=== PATIENT | male | born 1945 | race Caucasian/White ===

== ENCOUNTER 2017-12-27 14:23 | Inpatient (IN) | payer BC, MEDICARE ==
[2017-12-27] MEDS ORDERED: DUONEB 0.5-3 MG/3 ml Neb IH ONE (15:48)
[2017-12-27] MEDS ORDERED: Sodium Chloride 0.9% 10 ML FLUSH Syringe IV PRN (15:59)
[2017-12-27] MEDS ORDERED: solu-MEDROL 125 MG IV SCH (16:00)
[2017-12-27] MEDS: ROCEPHIN 1 Gm-D5w 50 ml Bag** 1 G/50 ML IVPB IV SCH (16:13)
[2017-12-27] MEDS ORDERED: Lasix 20 MG/2 ML IV ONE (16:15)
[2017-12-27 16:17] LABS: A-aADO2 312; ABG HEMOGLOBIN 15.9; ABG POTASSIUM 3.7 (3.5-5.1); ABG SITE LEFT BRACHIAL; ARTERIAL BLD GAS O2 SATURATION 95.6 % (95-100); ARTERIAL BLOOD GAS FIO2 60 %; ARTERIAL BLOOD GAS PCO2 45 mmHg (35-45); ARTERIAL BLOOD GAS PO2 60 mmHg (75-100); ARTERIAL BLOOD GAS pH 7.46 (7.35-7.45); HGB O2 SAT 91.6 g/dF (94-100); Methhemoglobin 1.2 % (1.4-1.5); paO2 pAO1 0.16
[2017-12-27] MEDS ORDERED: DUONEB 0.5-3 MG/3 ml Neb IH PRN (16:20)
[2017-12-27 16:21] LABS: Hematocrit 49.4 % (42-50); Hemoglobin 16.3 gm/dl (12.5-18.0); Mean Cell Volume 91.8 fl (78-100); Mean Corpuscular Hemoglobin 30.3 pg (26-32); Mean Platelet Volume 11.2 fl (6-9.5); Platelet Count 244 K/mm3 (150-450); Red Blood Count 5.38 M/mm3 (4.1-5.6); Red Cell Distribution Width 14.4 % (11.5-14.0); White Blood Count 17.7 K/mm3 (4.0-10.5)
[2017-12-27 16:45] LABS: ALBUMIN 4.3 g/dL (3.5-5.0); ALKALINE PHOSPHATASE 70 U/L (38-126); ANION GAP 14.7 MEQ/L (5-15); BLOOD UREA NITROGEN 26 mg/dL (9-20); CHLORIDE 94 mmol/L (98-107); Calcium 10.8 mg/dL (8.4-10.2); Carbon Dioxide 34 mmol/L (22-30); Creatinine 1 0.65 mg/dL (0.66-1.25); Glucose 103 mg/dL (74-106); Potassium 3.6 mmol/L (3.5-5.1); SGOT/AST 21 U/L (17-59); SGPT/ALT 19 U/L (0-50); SODIUM 139 mmol/L (137-145); Total Protein 7.8 g/dL (6.3-8.2)
--- NOTE | 2017-12-27 16:53 | XRAY ---
Indication: COPD exacerbation. Comparison: September 08, 2009. 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 No focal infiltrate, consolidation, or large effusion. Heart and mediastinal structures within normal limits for AP portable technique. Bony thorax intact again with osteopenia and degenerative changes. Impression: Nonacute chest with chronic features.
[2017-12-27 16:54] LABS: INFLUENZA A NEGATIVE (NEGATIVE); INFLUENZA B NEGATIVE (NEGATIVE); RESPIRATORY SYNCTIAL VIRUS NEGATIVE (Negative)
[2017-12-27 16:56] LABS: NT PRO BNP 256 pg/mL (0-900); TROPONIN 0.015 ng/mL (0.000-0.034)
[2017-12-27] MEDS ORDERED: Cardizem IV 50 MG/10 ML IV ONE (17:26)
[2017-12-27] MEDS: THEOPHYLLINE ER 24HR PO SCH (17:47)
[2017-12-27] MEDS ORDERED: DUONEB 0.5-3 MG/3 ml Neb IH SCH (19:00)
[2017-12-27] MEDS: Advair Hfa 230/21 Mcg COMMON CANISTER IH SCH ×2 (19:41→20:41)
[2017-12-27] MEDS ORDERED: Xopenex 1.25 MG/0.5 ML UD NEBULE IH PRN (20:46)
[2017-12-27] MEDS ORDERED: Sodium Chloride 3 ML UD NEBULES IH PRN (20:47)
[2017-12-27] MEDS: Sodium Chloride 0.9% 10 ML FLUSH Syringe IV SCH (21:07)
[2017-12-27] MEDS: solu-MEDROL 125 MG IV SCH (23:33)
[2017-12-28 05:44] LABS: Hematocrit 43.5 % (42-50); Hemoglobin 14.3 gm/dl (12.5-18.0); Mean Cell Volume 92.4 fl (78-100); Mean Corpuscular Hemoglobin 30.4 pg (26-32); Mean Corpuscular Hgb Concent. 32.9 g/dl (32-36); Mean Platelet Volume 11.5 fl (6-9.5); Platelet Count 230 K/mm3 (150-450); Red Blood Count 4.71 M/mm3 (4.1-5.6); Red Cell Distribution Width 14.1 % (11.5-14.0); White Blood Count 14.4 K/mm3 (4.0-10.5)
[2017-12-28] MEDS ORDERED: Spiriva 18 Mcg/Cap Inhaler IH ONE (06:11)
[2017-12-28] MEDS: Xopenex 1.25 MG/0.5 ML UD NEBULE IH SCH ×4 (06:13→19:56)
[2017-12-28] MEDS: Spiriva 18 Mcg/Cap Inhaler IH SCH (06:13)
[2017-12-28] MEDS: Sodium Chloride 3 ML UD NEBULES IH SCH ×4 (06:13→23:31)
[2017-12-28] MEDS: Advair Hfa 230/21 Mcg COMMON CANISTER IH SCH ×2 (06:13→19:56)
[2017-12-28 06:23] LABS: ANION GAP 10.6 MEQ/L (5-15); BLOOD UREA NITROGEN 31 mg/dL (9-20); CHLORIDE 93 mmol/L (98-107); Carbon Dioxide 38 mmol/L (22-30); Creatinine 1 0.66 mg/dL (0.66-1.25); Glucose 167 mg/dL (74-106); Potassium 4.4 mmol/L (3.5-5.1); SODIUM 137 mmol/L (137-145)
[2017-12-28] MEDS: solu-MEDROL 125 MG IV SCH ×4 (06:33→23:36)
[2017-12-28] MEDS: Sodium Chloride 0.9% 10 ML FLUSH Syringe IV SCH ×3 (06:34→23:36)
[2017-12-28] MEDS ORDERED: Atrovent 0.5MG NEBULE IH SCH (07:00)
[2017-12-28] MEDS ORDERED: NON-FORMULARY ITEM (Multivitamin [Multivitamins] 1 EACH) PO SCH (10:00)
[2017-12-28] MEDS ORDERED: NON-FORMULARY ITEM (Calcium Carbonate/Vitamin D3 [Calcium 600-Vit D3 200 Tablet] 1 EACH) PO SCH (10:00)
[2017-12-28] MEDS: Calcium 500MG W/Vit D Tablet PO SCH (10:14)
[2017-12-28] MEDS: Protonix 40MG Tablet PO SCH (10:15)
[2017-12-28] MEDS: THERAGRAN MULTIVITAMIN PO SCH (10:15)
[2017-12-28] MEDS: ENOXAPARIN SODIUM SQ SCH (10:16)
[2017-12-28] MEDS: ROCEPHIN 1 Gm-D5w 50 ml Bag** 1 G/50 ML IVPB IV SCH (10:16)
[2017-12-28] MEDS: CLARITIN 10 MG PO SCH ×2 (10:18→16:03)
[2017-12-28] MEDS: THEOPHYLLINE ER 24HR PO SCH (16:03)
--- NOTE | 2017-12-28 21:45 | PCM.NOTE ---
Date and Time: 12/28/172143 Subjective Assessment: still very short of breath - Review of Systems Constitutional: No Fever, No Chills Eyes: No Symptoms Ears, Nose, & Throat: No Symptoms Respiratory: Cough, Orthopnea, Short Of Breath, Wheezing Cardiac: No Chest Pain, No Edema, No Syncope Abdominal/Gastrointestinal: No Abdominal Pain, No Nausea, No Vomiting, No Diarrhea Genitourinary Symptoms: No Dysuria Musculoskeletal: No Back Pain, No Neck Pain Skin: No Rash Neurological: No Dizziness, No Focal Weakness, No Sensory Changes Psychological: No Symptoms Endocrine: No Symptoms Hematologic/Lymphatic: No Symptoms Immunological/Allergic: No Symptoms Objective Exam General Appearance: no apparent distress, alert Neurologic Exam: alert, oriented x 3, cooperative, normal mood/affect, nml cerebellar function, sensation nml, No motor deficits Skin Exam: normal color, warm, dry Eye Exam: PERRL, EOMI, eyes nml inspection Ears, Nose, Throat Exam: normal ENT inspection, pharynx normal, moist mucous membranes Neck Exam: normal inspection, non-tender, supple, full range of motion Respiratory Exam: normal breath sounds, diminished breath sounds, accessory muscle use, prolonged expirations, crackles/rales, rhonchi, wheezing, No respiratory distress Cardiovascular Exam: regular rate/rhythm, normal heart sounds Gastrointestinal/Abdomen Exam: soft, No tenderness, No mass Extremity Exam: normal inspection, normal range of motion Back Exam: normal inspection, normal range of motion, No CVA tenderness, No vertebral tenderness Male Genitalia Exam: deferred Rectal Exam: deferred OBJECTIVE DATA Vital Signs: Vital Signs - 24 hr Temp Pulse Resp BP Pulse Ox 12/28/17 20:00 98.2 F 97 H 17 135/64 93 L 12/28/17 19:56 102 H 22 93 L 12/28/17 16:00 97.6 F 104 H 22 152/85 94 L 12/28/17 14:58 104 H 22 94 L 12/28/17 12:00 21 12/28/17 11:17 97.6 F 88 21 152/85 92 L 12/28/17 10:58 88 24 92 L 12/28/17 08:00 22 12/28/17 07:28 98.2 F 102 H 22 129/70 91 L 12/28/17 06:15 102 H 22 91 L 12/28/17 04:00 98.2 F 97 H 19 138/78 98 12/28/17 00:00 17 12/27/17 23:32 98.8 F 95 H 17 136/59 97 Oxygen-Last 24 hours Oxygen Flowrate (L/min)-RT 10 Oxygen Flowrate (L/min)-RT 10 Oxygen Flowrate (L/min)-RT 10 Pain Assessment - Last Documented Pain Intensity 0 Pain Scale Used 0-10 Pain Scale Intake and Output: Intake & Output 12/26/17 12/27/17 12/28/17 12/29/17 11:59 11:59 11:59 11:59 Intake Total 720 240 Output Total 1200 300 Balance -480 -60 Weight 48.5 kg Lab Results: Lab Results-Last 24 Hours 12/28/17 12/28/17 Range/Units 05:32 05:32 WBC 14.4 H (4.0-10.5) K/mm3 RBC 4.71 (4.1-5.6) M/mm3 Hgb 14.3 (12.5-18.0) gm/dl Hct 43.5 (42-50) % MCV 92.4 (78-100) fl MCH 30.4 (26-32) pg MCHC 32.9 (32-36) g/dl RDW 14.1 H (11.5-14.0) % Plt Count 230 (150-450) K/mm3 MPV 11.5 H (6-9.5) fl Sodium 137 (137-145) mmol/L Potassium 4.4 (3.5-5.1) mmol/L Chloride 93 L (98-107) mmol/L Carbon Dioxide 38 H (22-30) mmol/L Anion Gap 10.6 (5-15) MEQ/L BUN 31 H (9-20) mg/dL Creatinine 0.66 (0.66-1.25) mg/dL Estimated GFR > 60.0 ML/MIN Glucose 167 H (74-106) mg/dL Calcium 10.0 (8.4-10.2) mg/dL Radiology Exams: Radiology Procedures Category Date Time Status CHEST 1 VIEW (PORTABLE) Routine Exams 12/27/17 16:15 Completed Assessment/Plan (1) COPD exacerbation Current Visit: Yes Status: Acute Onset Date: ~12/27/17 Assessment & Plan: Chief Complaint Diagnosis EXACERBATION COPD, RESP DISTRESS WITH HYPOXIA Allergies Allergy/AdvReac Type Severity Reaction Status Date / Time No Known Drug Allergies Allergy Verified 12/27/17 16:57 Vital Signs (Last 24 hours) Temp Pulse Resp BP Pulse Ox 12/28/17 20:00 98.2 F 97 H 17 135/64 93 L 12/28/17 19:56 102 H 22 93 L 12/28/17 16:00 97.6 F 104 H 22 152/85 94 L 12/28/17 14:58 104 H 22 94 L 12/28/17 12:00 21 12/28/17 11:17 97.6 F 88 21 152/85 92 L 12/28/17 10:58 88 24 92 L 12/28/17 08:00 22 12/28/17 07:28 98.2 F 102 H 22 129/70 91 L 12/28/17 06:15 102 H 22 91 L 12/28/17 04:00 98.2 F 97 H 19 138/78 98 12/28/17 00:00 17 12/27/17 23:32 98.8 F 95 H 17 136/59 97 Home Medications Medication Instructions Recorded Confirmed Last Taken Type Albuterol Common Canister 1 puff IH Q4HPRN PRN 12/27/17 12/27/17 Unknown History [Proventil Common Canister] Budesonide/Formoterol Fumarate 2 puff IH BID 12/27/17 12/27/17 12/27/17 History [Symbicort 160-4.5 Mcg Inhaler] Calcium Carbonate/Vitamin D3 1 each PO DAILY 12/27/17 12/27/17 12/27/17 History [Calcium 600 + Vit D 200 Tablet] Ipratropium/Albuterol Sulfate 1 puff IH QID 12/27/17 12/27/17 12/27/17 History [Combivent Inhaler] Loratadine 10 mg [Claritin 10 10 mg PO 0900,1600 12/27/17 12/27/17 12/27/17 History mg] Multivitamin [Multivitamins] 1 each PO DAILY 12/27/17 12/27/17 12/27/17 History Prednisone 5 mg [Deltasone 5 2 tab PO 0900,1600 12/27/17 12/27/1712/27/18 09 :00 History mg] Theophylline Anhydrous 400 mg PO 1600 12/27/17 12/27/17 12/26/17 History [Theophylline] Tiotropium [place] Inhaler 2 puff IH DAILY 12/27/17 12/27/17 12/27/17 History [Spiriva 18 Mcg/Cap Inhaler] Current Medications Generic Name Dose Route Start Last Admin Trade Name Freq PRN Reason Stop Dose Admin Calcium Carbonate 1 tab 12/28/17 10:00 12/28/17 10:14 Calcium 500mg W/Vit D Tablet PO 01/27/18 09:59 1 tab DAILY EDGAR Administration Enoxaparin Sodium 40 mg 12/28/17 10:00 12/28/17 10:16 Enoxaparin Sodium SQ 01/27/18 09:59 40 mg DAILY EDGAR Administration Ceftriaxone Sodium/Dextrose 1 g in 50 mls @ 100 mls/hr 12/27/17 16:00 10:16 Rocephin 1 Gm-D5w 50 Ml Bag IV 01/26/18 15:59 100 mls/hr Q24H10 EDGAR Administration Levalbuterol HCl 1.25 mg 12/28/17 07:00 12/28/17 19:56 Xopenex 1.25 Mg/0.5 Ml Ud Nebule IH 01/27/18 06:59 1.25 mg QIDRT EDGAR Administration Levalbuterol HCl 1.25 mg 12/27/17 20:46 Xopenex 1.25 Mg/0.5 Ml Ud Nebule IH 01/26/18 20:45 Q4HPRN PRN SHORTNESS OF BREATH/WHEEZING Loratadine 10 mg 12/28/17 09:00 12/28/17 16:03 Claritin 10 Mg PO 01/27/18 08:59 10 mg 0900,1600 EDGAR Administration Lorazepam 0.5 mg 12/27/17 17:26 Ativan 0.5 Mg PO 01/26/18 17:25 BID PRN PRN ANXIETY Methylprednisolone Sodium Succinate 60 mg 12/28/17 00:00 12/28/17 18:34 Solu-Medrol 125 Mg IV 01/27/18 00:00 60 mg Q6HT EDGAR Administration Multivitamins Therapeutic 1 tab 12/28/17 10:00 12/28/17 10:15 Theragran Multivitamin PO 01/27/18 09:59 1 tab DAILY EDGAR Administration Pantoprazole Sodium 40 mg 12/28/17 10:00 12/28/17 10:15 Protonix 40mg Tablet PO 01/27/18 09:59 40 mg DAILY EDGAR Administration Fluticasone/Salmeterol 2 puff 12/27/17 19:00 12/28/17 19:56 Advair Hfa 230/21 Mcg Common Canister* IH 01/26/18 18:59 2 puff BIDRT EDGAR Administration Sodium Chloride 10 ml 12/27/17 22:00 12/28/17 15:30 Sodium Chloride 0.9% 10 Ml Flush Syringe IV 01/26/18 21:59 10 ml Q8HT EDGAR Administration Sodium Chloride 10 ml 12/27/17 15:59 Sodium Chloride 0.9% 10 Ml Flush Syringe IV 01/26/18 15:58 PRN PRN Sodium Chloride 3 ml 12/27/17 20:47 Sodium Chloride 3 Ml Ud Nebules IH 01/26/18 20:46 Q4HPRN PRN TO DILUTE XOPENEX Sodium Chloride 3 ml 12/28/17 07:00 12/28/17 14:55 Sodium Chloride 3 Ml Ud Nebules IH 01/27/18 06:59 3 ml QIDRT EDGAR Administration Theophylline 400 mg 12/27/17 17:45 12/28/17 16:03 Theophylline Er 24hr PO 01/26/18 17:44 400 mg 1600 EDGAR Administration Tiotropium [place] 1 ea 12/28/17 10:00 12/28/17 06:13 Spiriva 18 Mcg/Cap Inhaler IH 01/27/18 09:59 1 ea DAILY EDGAR Administration Discontinued Medications Generic Name Dose Route Start Last Admin Trade Name Freq PRN Reason Stop Dose Admin Albuterol/Ipratropium Confirm 12/27/17 15:48 Duoneb 0.5-3 Mg/3 Ml Neb Administered 12/27/17 15:49 Dose 3 ml IH .STK-MED ONE Albuterol/Ipratropium 3 ml 12/27/17 19:00 12/27/17 19:39 Duoneb 0.5-3 Mg/3 Ml Neb IH 01/26/18 18:59 3 ml QIDRT EDGAR Administration Albuterol/Ipratropium 3 ml 12/27/17 16:20 12/27/17 16:00 Duoneb 0.5-3 Mg/3 Ml Neb IH 01/26/18 16:19 3 ml Q4HPRN PRN Administration SHORTNESS OF BREATH/WHEEZING Diltiazem HCl 2.5 mg 12/27/17 17:26 12/27/17 17:47 Cardizem Iv 50 Mg/10 Ml IV 12/27/17 17:27 2.5 mg ONCE ONE Administration Furosemide 20 mg 12/27/17 16:15 12/27/17 16:13 Lasix 20 Mg/2 Ml IV 12/27/17 16:16 20 mg NOW ONE Administration Ipratropium [place] 0.5 mg 12/28/17 07:00 Atrovent 0.5mg Nebule 01/27/18 06:59 QIDRT EDGAR Methylprednisolone Sodium Succinate 125 mg 12/27/17 16:00 12/27/17 16:13 Solu-Medrol 125 Mg IV 12/27/17 17:00 125 mg NOW EDGAR Administration Tiotropium [place] Confirm 12/28/17 06:11 Spiriva 18 Mcg/Cap Inhaler Administered 12/28/17 06:12 Dose 1 ea IH .STK-MED ONE Intake & Output (Last 24 hours) 12/26/17 12/27/17 12/28/17 12/29/17 11:59 11:59 11:59 11:59 Intake Total 720 240 Output Total 1200 300 Balance -480 -60 Weight 48.5 kg Laboratory Results (Last 24 hours) 12/28/17 12/28/17 05:32 05:32 WBC 14.4 H RBC 4.71 Hgb 14.3 Hct 43.5 MCV 92.4 MCH 30.4 MCHC 32.9 RDW 14.1 H Plt Count 230 MPV 11.5 H Sodium 137 Potassium 4.4 Chloride 93 L Carbon Dioxide 38 H Anion Gap 10.6 BUN 31 H Creatinine 0.66 Estimated GFR > 60.0 Glucose 167 H Calcium 10.0 Orders (Last 24 hours) Category Date Time Status BMP AM.LAB Lab 12/28/17 05:32 Completed CBC AM.LAB Lab 12/28/17 05:32 Completed Calcium Carb/Vitamin D 500 mg* [Calcium 500MG W/Vit D Med 12/28/17 10:00 Active Tablet] 1 tab PO DAILY Enoxaparin Sodium [Enoxaparin Sodium] Med 12/28/17 10:00 Active 40 mg SQ DAILY Ipratropium [place] 0.5 mg [Atrovent 0.5MG NEBULE] Med 12/28/17 07:00 Discontinued 0.5 mg IH QIDRT Levalbuterol HCl 1.25 MG/0.5M* [Xopenex 1.25 MG/0.5 ML Med 12/27/17 20:46 Active UD NEBULE] 1.25 mg IH Q4HPRN PRN Levalbuterol HCl 1.25 MG/0.5M* [Xopenex 1.25 MG/0.5 ML Med 12/28/17 07:00 Active UD NEBULE] 1.25 mg IH QIDRT Loratadine 10 mg [Claritin 10 mg] Med 12/28/17 09:00 Active 10 mg PO 0900,1600 Methylprednis Sod Succ 125 mg* [solu-MEDROL 125 MG] Med 12/28/17 00:00 Active 60 mg IV Q6HT Multivitamins,Therapeutic Tab* [Theragran Multivitamin* Med 12/28/17 10:00 Active ] 1 tab PO DAILY NaCl 0.9% 10 ML FLUSH [Sodium Chloride 0.9% 10 ML FLUSH Med 12/27/17 22:00 Active Syringe] 10 ml IV Q8HT NaCl 3Ml For Inhalation [Sodium Chloride 3 ML UD Med 12/27/17 20:47 Active NEBULES] 3 ml IH Q4HPRN PRN NaCl 3Ml For Inhalation [Sodium Chloride 3 ML UD Med 12/28/17 07:00 Active NEBULES] 3 ml IH QIDRT PANTOPRAZOLE 40 mg Tablet [Protonix 40MG Tablet] Med 12/28/17 10:00 Active 40 mg PO DAILY Tiotropium [place] Inhaler [Spiriva 18 Mcg/Cap Med 12/28/17 06:11 Discontinued Inhaler] 1 ea IH .STK-MED ONE Tiotropium [place] Inhaler [Spiriva 18 Mcg/Cap Med 12/28/17 10:00 Active Inhaler] 1 ea IH DAILY Respiratory MDI UD RT 12/28/17 10:00 Active Respiratory Nebulizer PRN RT 12/27/17 20:46 Active Respiratory Nebulizer QID RT 12/28/17 07:00 Active Code(s): J44.1 - CHRONIC OBSTRUCTIVE PULMONARY DISEASE W (ACUTE) EXACERBATION (2) SOB (shortness of breath) Current Visit: Yes Status: Acute Onset Date: ~12/27/17 Code(s): R06.02 - SHORTNESS OF BREATH
[2017-12-29] MEDS: solu-MEDROL 125 MG IV SCH ×4 (06:27→23:33)
[2017-12-29] MEDS: Sodium Chloride 0.9% 10 ML FLUSH Syringe IV SCH ×3 (06:29→22:40)
[2017-12-29] MEDS: Sodium Chloride 3 ML UD NEBULES IH SCH ×3 (07:01→19:54)
[2017-12-29] MEDS: Xopenex 1.25 MG/0.5 ML UD NEBULE IH SCH ×4 (07:02→19:54)
[2017-12-29] MEDS: Advair Hfa 230/21 Mcg COMMON CANISTER IH SCH ×2 (07:02→19:55)
[2017-12-29] MEDS: Spiriva 18 Mcg/Cap Inhaler IH SCH (07:02)
[2017-12-29] MEDS: Calcium 500MG W/Vit D Tablet PO SCH (09:48)
[2017-12-29] MEDS: ENOXAPARIN SODIUM SQ SCH (09:48)
[2017-12-29] MEDS: CLARITIN 10 MG PO SCH ×2 (09:49→17:54)
[2017-12-29] MEDS: THERAGRAN MULTIVITAMIN PO SCH (09:49)
[2017-12-29] MEDS: ROCEPHIN 1 Gm-D5w 50 ml Bag** 1 G/50 ML IVPB IV SCH (09:49)
[2017-12-29] MEDS: Protonix 40MG Tablet PO SCH (09:49)
[2017-12-29] MEDS: Ativan 0.5 MG PO PRN (10:58)
--- NOTE | 2017-12-29 12:41 | PCM.HP.ADD ---
Addendum to History & Physical - History & Physical Addendum Addendum to History & Physical: This certifies that the History & Physical in the electronic chart reflects the current health status of the patient. If there are changes in the H&P these changes/exceptions are listed as follows.
--- NOTE | 2017-12-29 12:42 | PCM.NOTE ---
Date and Time: 12/29/17 1241 Subjective Assessment: still very short of breath - Review of Systems Constitutional: No Fever, No Chills Eyes: No Symptoms Ears, Nose, & Throat: No Symptoms Respiratory: No Cough, No Short Of Breath Cardiac: No Chest Pain, No Edema, No Syncope Abdominal/Gastrointestinal: No Abdominal Pain, No Nausea, No Vomiting, No Diarrhea Genitourinary Symptoms: No Dysuria Musculoskeletal: No Back Pain, No Neck Pain Skin: No Rash Neurological: No Dizziness, No Focal Weakness, No Sensory Changes Psychological: No Symptoms Endocrine: No Symptoms Hematologic/Lymphatic: No Symptoms Immunological/Allergic: No Symptoms Objective Exam General Appearance: no apparent distress, alert Neurologic Exam: alert, oriented x 3, cooperative, normal mood/affect, nml cerebellar function, sensation nml, No motor deficits Skin Exam: normal color, warm, dry Eye Exam: PERRL, EOMI, eyes nml inspection Ears, Nose, Throat Exam: normal ENT inspection, pharynx normal, moist mucous membranes Neck Exam: normal inspection, non-tender, supple, full range of motion Respiratory Exam: normal breath sounds, diminished breath sounds, accessory muscle use, prolonged expirations, wheezing, No respiratory distress Cardiovascular Exam: regular rate/rhythm, normal heart sounds Gastrointestinal/Abdomen Exam: soft, No tenderness, No mass Extremity Exam: normal inspection, normal range of motion Back Exam: normal inspection, normal range of motion, No CVA tenderness, No vertebral tenderness Male Genitalia Exam: deferred Rectal Exam: deferred OBJECTIVE DATA Vital Signs: Vital Signs - 24 hr Temp Pulse Resp BP Pulse Ox 12/29/17 12:00 101 H 22 165/87 92 L 12/29/17 10:29 101 H 22 92 L 12/29/17 09:55 93 L 12/29/17 08:00 24 12/29/17 07:47 97.9 F 83 24 147/78 97 12/29/17 07:08 84 22 98 12/29/17 04:00 97.6 F 79 22 126/75 98 12/29/17 00:00 98.4 F 68 16 154/73 98 12/28/17 20:00 98.2 F 97 H 17 135/64 93 L 12/28/17 19:56 102 H 22 93 L 12/28/17 16:00 97.6 F 104 H 22 152/85 94 L 12/28/17 14:58 104 H 22 94 L Oxygen-Last 24 hours Oxygen Flowrate (L/min)-RT 10 Oxygen Flowrate (L/min)-RT 10 Oxygen Flowrate (L/min)-RT 10 Pain Assessment - Last Documented Pain Intensity 0 Pain Scale Used 0-10 Pain Scale Intake and Output: Intake & Output 12/27/17 12/28/17 12/29/17 12/30/17 11:59 11:59 11:59 11:59 Intake Total 720 840 Output Total 1200 600 Balance -480 240 Weight 48.5 kg 48.5 kg Radiology Exams: Radiology Procedures Category Date Time Status CHEST 1 VIEW (PORTABLE) Routine Exams 12/27/17 16:15 Completed Multi-Disciplinary Progress Notes: Multi-Disciplinary Progress Notes 12/29/17 09:25 (created 12/29/17 12:36) Case Management Note by Debby Perera DISCHARGE PLAN REVIEWED, PLAN TO RETURN HOME WITH TO PRE EPISODIC LEVEL OF FNX. HAS HOME OXYGEN AND ALL NECESSARY EQUIP IF NEEDED. DENIES ADDNL NEEDS AT PRESENT. WILL FOLLOW. Initialized on 12/29/17 12:36 - END OF NOTE Assessment/Plan (1) COPD exacerbation Current Visit: Yes Status: Acute Onset Date: ~12/27/17 Code(s): J44.1 - CHRONIC OBSTRUCTIVE PULMONARY DISEASE W (ACUTE) EXACERBATION (2) SOB (shortness of breath) Current Visit: Yes Status: Acute Onset Date: ~12/27/17 Code(s): R06.02 - SHORTNESS OF BREATH
[2017-12-29] MEDS ORDERED: Aminophylline 500 MG/20 ML IV SCH (13:30)
[2017-12-29] MEDS ORDERED: PHARMACY DOSING REQUEST MC ONE (15:00)
[2017-12-29] MEDS: Aminophylline 500 MG/20 ML*** 500 MG in Sodium Chloride 0.9% 500 ML 480 ML IV SCH (15:33)
[2017-12-30] MEDS: solu-MEDROL 125 MG IV SCH ×4 (05:48→23:45)
[2017-12-30] MEDS: Sodium Chloride 0.9% 10 ML FLUSH Syringe IV SCH ×3 (05:55→22:39)
[2017-12-30 05:59] LABS: Basophil (Absolute #) 0 (0-0.4); Eosinophil (Absolute #) 0 (0-0.5); Granulocyte Absolute (ANC) 9.32 (1.4-6.9); Granulocytes % 95.6 % (36.0-66.0); Hematocrit 39.2 % (42-50); Hemoglobin 12.7 gm/dl (12.5-18.0); Lymphocyte (Absolute #) 0.09 (1.0-4.6); Lymphocytes % 0.9 % (24.0-44.0); Mean Cell Volume 93.6 fl (78-100); Mean Corpuscular Hemoglobin 30.3 pg (26-32); Mean Corpuscular Hgb Concent. 32.4 g/dl (32-36); Mean Platelet Volume 11.2 fl (6-9.5); Monocyte (Absolute #) 0.34 (0.0-1.3); Monocytes % 3.5 % (0.0-12.0); Platelet Count 231 K/mm3 (150-450); Red Blood Count 4.19 M/mm3 (4.1-5.6); Red Cell Distribution Width 13.6 % (11.5-14.0); White Blood Count 9.8 K/mm3 (4.0-10.5)
[2017-12-30 06:28] LABS: ALKALINE PHOSPHATASE 49 U/L (38-126); ANION GAP 7.9 MEQ/L (5-15); BLOOD UREA NITROGEN 40 mg/dL (9-20); CHLORIDE 96 mmol/L (98-107); Calcium 9.3 mg/dL (8.4-10.2); Carbon Dioxide 38 mmol/L (22-30); Creatinine 1 0.65 mg/dL (0.66-1.25); Glucose 165 mg/dL (74-106); PHOSPHOROUS 2.3 mg/dL (2.5-4.5); Potassium 3.9 mmol/L (3.5-5.1); SGOT/AST 16 U/L (17-59); SGPT/ALT 17 U/L (0-50); SODIUM 138 mmol/L (137-145); Total Protein 5.9 g/dL (6.3-8.2)
[2017-12-30] MEDS: Advair Hfa 230/21 Mcg COMMON CANISTER IH SCH ×2 (07:30→23:19)
[2017-12-30] MEDS: Xopenex 1.25 MG/0.5 ML UD NEBULE IH SCH ×4 (07:30→23:17)
[2017-12-30] MEDS: Spiriva 18 Mcg/Cap Inhaler IH SCH (07:31)
[2017-12-30 09:02] LABS: Slide Review 1 YES
[2017-12-30] MEDS: ENOXAPARIN SODIUM SQ SCH (09:04)
[2017-12-30] MEDS: Calcium 500MG W/Vit D Tablet PO SCH (09:05)
[2017-12-30] MEDS: Protonix 40MG Tablet PO SCH (09:05)
[2017-12-30] MEDS: THERAGRAN MULTIVITAMIN PO SCH (09:05)
[2017-12-30] MEDS: CLARITIN 10 MG PO SCH ×2 (09:06→15:20)
[2017-12-30] MEDS: ROCEPHIN 1 Gm-D5w 50 ml Bag** 1 G/50 ML IVPB IV SCH (09:07)
[2017-12-30] MEDS: Aminophylline 500 MG/20 ML*** 500 MG in Sodium Chloride 0.9% 500 ML 480 ML IV SCH (15:21)
[2017-12-30] MEDS: Ativan 0.5 MG PO PRN (18:19)
[2017-12-30] MEDS: Sodium Chloride 3 ML UD NEBULES IH SCH (23:17)
[2017-12-30] MEDS: PULMICORT 0.5 MG/2 ML RESPULES IH SCH (23:24)
[2017-12-31 05:43] LABS: Hematocrit 41.8 % (42-50); Hemoglobin 13.7 gm/dl (12.5-18.0); Mean Cell Volume 93.7 fl (78-100); Mean Corpuscular Hemoglobin 30.7 pg (26-32); Mean Corpuscular Hgb Concent. 32.8 g/dl (32-36); Mean Platelet Volume 10.9 fl (6-9.5); Platelet Count 232 K/mm3 (150-450); Red Blood Count 4.46 M/mm3 (4.1-5.6); Red Cell Distribution Width 13.7 % (11.5-14.0); White Blood Count 14.5 K/mm3 (4.0-10.5)
[2017-12-31 06:05] LABS: ALKALINE PHOSPHATASE 50 U/L (38-126); BLOOD UREA NITROGEN 29 mg/dL (9-20); CHLORIDE 98 mmol/L (98-107); Calcium 9.3 mg/dL (8.4-10.2); Glucose 157 mg/dL (74-106); Potassium 3.7 mmol/L (3.5-5.1); SGOT/AST 15 U/L (17-59); SGPT/ALT 20 U/L (0-50); SODIUM 143 mmol/L (137-145); Total Protein 5.9 g/dL (6.3-8.2)
[2017-12-31 06:07] LABS: NT PRO BNP 452 pg/mL (0-900)
[2017-12-31] MEDS: solu-MEDROL 125 MG IV SCH ×4 (06:07→23:13)
[2017-12-31] MEDS: Sodium Chloride 0.9% 10 ML FLUSH Syringe IV SCH ×2 (06:08→23:15)
[2017-12-31 06:16] LABS: Carbon Dioxide 38 mmol/L (22-30)
[2017-12-31 06:23] LABS: ANION GAP 10.7 MEQ/L (5-15)
[2017-12-31] MEDS: Xopenex 1.25 MG/0.5 ML UD NEBULE IH SCH ×4 (07:06→19:19)
[2017-12-31] MEDS: Sodium Chloride 3 ML UD NEBULES IH SCH ×4 (07:07→19:19)
[2017-12-31] MEDS: PULMICORT 0.5 MG/2 ML RESPULES IH SCH ×2 (07:07→19:19)
[2017-12-31] MEDS: Advair Hfa 230/21 Mcg COMMON CANISTER IH SCH ×2 (07:07→19:22)
[2017-12-31] MEDS: Spiriva 18 Mcg/Cap Inhaler IH SCH (07:09)
--- NOTE | 2017-12-31 08:07 | PCM.NOTE ---
Date and Time: 12/31/17805 Subjective Assessment: doing better - Review of Systems Constitutional: No Fever, No Chills Eyes: No Symptoms Ears, Nose, & Throat: No Symptoms Respiratory: Short Of Breath, Wheezing, No Cough Cardiac: No Chest Pain, No Edema, No Syncope Abdominal/Gastrointestinal: No Abdominal Pain, No Nausea, No Vomiting, No Diarrhea Genitourinary Symptoms: No Dysuria Musculoskeletal: No Back Pain, No Neck Pain Skin: No Rash Neurological: No Dizziness, No Focal Weakness, No Sensory Changes Psychological: No Symptoms Endocrine: No Symptoms Hematologic/Lymphatic: No Symptoms Immunological/Allergic: No Symptoms Objective Exam General Appearance: no apparent distress, alert Neurologic Exam: alert, oriented x 3, cooperative, normal mood/affect, nml cerebellar function, sensation nml, No motor deficits Skin Exam: normal color, warm, dry Eye Exam: PERRL, EOMI, eyes nml inspection Ears, Nose, Throat Exam: normal ENT inspection, pharynx normal, moist mucous membranes Neck Exam: normal inspection, non-tender, supple, full range of motion Respiratory Exam: diminished breath sounds, accessory muscle use, prolonged expirations, wheezing, No respiratory distress Cardiovascular Exam: regular rate/rhythm, normal heart sounds Gastrointestinal/Abdomen Exam: soft, No tenderness, No mass Extremity Exam: normal inspection, normal range of motion Back Exam: normal inspection, normal range of motion, No CVA tenderness, No vertebral tenderness Male Genitalia Exam: deferred Rectal Exam: deferred OBJECTIVE DATA Vital Signs: Vital Signs - 24 hr Temp Pulse Resp BP Pulse Ox 12/31/17 07:18 97.7 F 80 20 129/73 99 12/31/17 05:00 21 12/31/17 04:00 97.9 F 81 21 123/70 97 12/31/17 01:00 28 H 12/31/17 00:00 97.5 F 93 H 36 H 148/81 96 12/30/17 22:00 88 24 92 L 12/30/17 21:00 28 H 12/30/17 20:00 97.7 F 117 H 28 H 130/64 92 L 12/30/17 17:54 22 12/30/17 17:45 70 22 94 L 12/30/17 16:14 97.7 F 98 H 22 140/86 93 L 12/30/17 16:00 22 12/30/17 15:27 92 H 20 98 12/30/17 12:00 20 12/30/17 11:22 82 20 93 L 12/30/17 11:16 97.7 F 91 H 20 139/85 93 L Oxygen-Last 24 hours Oxygen Flowrate (L/min)-RT 10 Oxygen Flowrate (L/min)-RT 10 Oxygen Flowrate (L/min)-RT 10 Pain Assessment - Last Documented Pain Intensity 0 Pain Scale Used 0-10 Pain Scale Intake and Output: Intake & Output 12/28/17 12/29/17 12/30/17 12/31/17 11:59 11:59 11:59 11:59 Intake Total 720 436 844 9856 Output Total 1487 788 6380 1175 Balance -480 240 -277 -134 Weight 48.5 kg 48.5 kg Lab Results: Lab Results-Last 24 Hours 12/30/17 12/31/17 12/31/17 Range/Units 05:50 05:00 05:00 WBC 14.5 H (4.0-10.5) K/mm3 RBC 4.46 (4.1-5.6) M/mm3 Hgb 13.7 (12.5-18.0) gm/dl Hct 41.8 L (42-50) % MCV 93.7 (78-100) fl MCH 30.7 (26-32) pg MCHC 32.8 (32-36) g/dl RDW 13.7 (11.5-14.0) % Plt Count 232 (150-450) K/mm3 MPV 10.9 H (6-9.5) fl Sodium (137-145) mmol/L Potassium (3.5-5.1) mmol/L Chloride (98-107) mmol/L Carbon Dioxide (22-30) mmol/L Anion Gap (5-15) MEQ/L BUN (9-20) mg/dL Creatinine (0.66-1.25) mg/dL Estimated GFR ML/MIN Glucose (74-106) mg/dL Calcium (8.4-10.2) mg/dL Total Bilirubin (0.2-1.3) mg/dL AST (17-59) U/L ALT (0-50) U/L Alkaline Phosphatase (38-126) U/L NT-Pro-B Natriuret Pep (0-900) pg/mL Serum Total Protein (6.3-8.2) g/dL Albumin (3.5-5.0) g/dL Theophylline 5.4 L (10-20) ug/mL Slides for Path Review YES 12/31/17 Range/Units 05:00 WBC (4.0-10.5) K/mm3 RBC (4.1-5.6) M/mm3 Hgb (12.5-18.0) gm/dl Hct (42-50) % MCV (78-100) fl MCH (26-32) pg MCHC (32-36) g/dl RDW (11.5-14.0) % Plt Count (150-450) K/mm3 MPV (6-9.5) fl Sodium 143 (137-145) mmol/L Potassium 3.7 (3.5-5.1) mmol/L Chloride 98 (98-107) mmol/L Carbon Dioxide 38 H (22-30) mmol/L Anion Gap 10.7 (5-15) MEQ/L BUN 29 H (9-20) mg/dL Creatinine 0.50 L (0.66-1.25) mg/dL Estimated GFR > 60.0 ML/MIN Glucose 157 H (74-106) mg/dL Calcium 9.3 (8.4-10.2) mg/dL Total Bilirubin 0.30 (0.2-1.3) mg/dL AST 15 L (17-59) U/L ALT 20 (0-50) U/L Alkaline Phosphatase 50 (38-126) U/L NT-Pro-B Natriuret Pep 452 (0-900) pg/mL Serum Total Protein 5.9 L (6.3-8.2) g/dL Albumin 3.0 L (3.5-5.0) g/dL Theophylline (10-20) ug/mL Slides for Path Review Assessment/Plan (1) COPD exacerbation Current Visit: Yes Status: Acute Onset Date: ~12/27/17 Code(s): J44.1 - CHRONIC OBSTRUCTIVE PULMONARY DISEASE W (ACUTE) EXACERBATION (2) SOB (shortness of breath) Current Visit: Yes Status: Acute Onset Date: ~12/27/17 Code(s): R06.02 - SHORTNESS OF BREATH
[2017-12-31] MEDS: Ativan 0.5 MG PO PRN ×2 (08:23→21:51)
[2017-12-31] MEDS: CLARITIN 10 MG PO SCH ×2 (08:23→16:43)
[2017-12-31] MEDS: Protonix 40MG Tablet PO SCH (09:34)
[2017-12-31] MEDS: ENOXAPARIN SODIUM SQ SCH (09:34)
[2017-12-31] MEDS: Calcium 500MG W/Vit D Tablet PO SCH (09:34)
[2017-12-31] MEDS: ROCEPHIN 1 Gm-D5w 50 ml Bag** 1 G/50 ML IVPB IV SCH (09:34)
[2017-12-31] MEDS: THERAGRAN MULTIVITAMIN PO SCH (09:35)
[2017-12-31] MEDS: Aminophylline 500 MG/20 ML*** 500 MG in Sodium Chloride 0.9% 500 ML 480 ML IV SCH (15:01)
[2017-12-31] MEDS ORDERED: TYLENOL 325 MG PO PRN (20:27)
[2018-01-01] MEDS: solu-MEDROL 125 MG IV SCH ×2 (06:00→11:44)
[2018-01-01] MEDS: Sodium Chloride 0.9% 10 ML FLUSH Syringe IV SCH (06:01)
[2018-01-01] MEDS: Spiriva 18 Mcg/Cap Inhaler IH SCH (07:17)
[2018-01-01] MEDS: Advair Hfa 230/21 Mcg COMMON CANISTER IH SCH (07:17)
[2018-01-01] MEDS: Xopenex 1.25 MG/0.5 ML UD NEBULE IH SCH ×3 (07:17→14:35)
[2018-01-01] MEDS: PULMICORT 0.5 MG/2 ML RESPULES IH SCH (07:17)
[2018-01-01] MEDS: Sodium Chloride 3 ML UD NEBULES IH SCH ×3 (07:17→14:35)
[2018-01-01] MEDS: Calcium 500MG W/Vit D Tablet PO SCH (10:19)
[2018-01-01] MEDS: Ativan 0.5 MG PO PRN (10:19)
[2018-01-01] MEDS: ENOXAPARIN SODIUM SQ SCH (10:20)
[2018-01-01] MEDS: THERAGRAN MULTIVITAMIN PO SCH (10:20)
[2018-01-01] MEDS: ROCEPHIN 1 Gm-D5w 50 ml Bag** 1 G/50 ML IVPB IV SCH (10:20)
[2018-01-01] MEDS: Protonix 40MG Tablet PO SCH (10:20)
[2018-01-01] MEDS: CLARITIN 10 MG PO SCH (10:22)
--- NOTE | 2018-01-01 13:09 | PCM.DS ---
Discharge Summary Date of Admission: 12/27/17 19:39 Admitting Physician: BRETT VALENCIA Primary Care Provider: JEREMI PLUNKETT Allergies Allergies No Known Drug Allergies Allergy (Verified 12/27/17 16:57) Hospital Summary - Hospital Course Hospital Course: Chief Complaint Diagnosis EXACERBATION COPD, RESP DISTRESS WITH HYPOXIA Allergies Allergy/AdvReac Type Severity Reaction Status Date / Time No Known Drug Allergies Allergy Verified 12/27/17 16:57 Vital Signs (Last 24 hours) Temp Pulse Resp BP Pulse Ox 01/01/18 11:57 97.4 F 111 H 30 H 118/65 94 L 01/01/18 10:30 95 H 22 87 L 01/01/18 09:00 22 01/01/18 08:00 97.5 F 83 19 145/67 99 01/01/18 07:24 82 20 98 01/01/18 05:00 22 01/01/18 04:00 98.0 F 98 H 22 143/80 92 L 01/01/18 01:00 24 12/31/17 23:54 96.5 F 90 24 150/74 96 12/31/17 21:00 21 12/31/17 20:10 98.3 F 94 H 21 140/77 97 12/31/17 19:23 98 H 20 97 12/31/17 16:30 97.7 F 100 H 22 149/74 93 L 12/31/17 14:54 104 H 24 88 L Home Medications Medication Instructions Recorded Confirmed Last Taken Type Albuterol Common Canister 1 puff IH Q4HPRN PRN 12/27/17 12/27/17 Unknown History [Proventil Common Canister] Budesonide/Formoterol Fumarate 2 puff IH BID 12/27/17 12/27/17 12/27/17 History [Symbicort 160-4.5 Mcg Inhaler] Calcium Carbonate/Vitamin D3 1 each PO DAILY 12/27/17 12/27/17 12/27/17 History [Calcium 600 + Vit D 200 Tablet] Ipratropium/Albuterol Sulfate 1 puff IH QID 12/27/17 12/27/17 12/27/17 History [Combivent Inhaler] Loratadine 10 mg [Claritin 10 10 mg PO 0900,1600 12/27/17 12/27/17 12/27/17 History mg] Multivitamin [Multivitamins] 1 each PO DAILY 12/27/17 12/27/17 12/27/17 History Prednisone 5 mg [Deltasone 5 2 tab PO 0900,1600 12/27/17 12/27/17 12/27/17 09 :00 History mg] Theophylline Anhydrous 400 mg PO 1600 12/27/17 12/27/17 12/26/17 History [Theophylline] Tiotropium [place] Inhaler 2 puff IH DAILY 12/27/17 12/27/17 12/27/17 History [Spiriva 18 Mcg/Cap Inhaler] Current Medications Generic Name Dose Route Start Last Admin Trade Name Freq PRN Reason Stop Dose Admin Acetaminophen 650 mg 12/31/17 20:27 12/31/17 20:32 Tylenol 325 Mg PO 01/30/18 20:26 650 mg Q4H PRN PRN Administration PAIN AND/OR FEVER Budesonide 0.5 mg 12/30/17 11:30 01/01/18 07:17 Pulmicort 0.5 Mg/2 Ml Respules IH 01/29/18 11:29 0.5 mg BIDRT EDGAR Administration Calcium Carbonate 1 tab 12/28/17 10:00 01/01/18 10:19 Calcium 500mg W/Vit D Tablet PO 01/27/18 09:59 1 tab DAILY EDGAR Administration Enoxaparin Sodium 40 mg 12/28/17 10:00 01/01/18 10:20 Enoxaparin Sodium SQ 01/27/18 09:59 40 mg DAILY EDGAR Administration Ceftriaxone Sodium/Dextrose 1 g in 50 mls @ 100 mls/hr 12/27/17 16:00 10:20 Rocephin 1 Gm-D5w 50 Ml Bag IV 01/26/18 15:59 100 mls/hr Q24H10 EDGAR Administration Aminophylline 500 mg/ Sodium 500 mls @ 25 mls/hr 12/29/17 15:00 12/31/17 15: 01 Chloride IV 01/28/18 14:59 20 ml/hr .Q20H EDGAR 20 mls/hr Administration Levalbuterol HCl 1.25 mg 12/28/17 07:00 01/01/18 10:26 Xopenex 1.25 Mg/0.5 Ml Ud Nebule IH 01/27/18 06:59 1.25 mg QIDRT EDGAR Administration Levalbuterol HCl 1.25 mg 12/27/17 20:46 12/30/17 17:45 Xopenex 1.25 Mg/0.5 Ml Ud Nebule IH 01/26/18 20:45 1.25 mg Q4HPRN PRN Administration SHORTNESS OF BREATH/WHEEZING Loratadine 10 mg 12/28/17 09:00 01/01/18 10:22 Claritin 10 Mg PO 01/27/18 08:59 10 mg 0900,1600 EDGAR Administration Lorazepam 0.5 mg 12/27/17 17:26 01/01/18 10:19 Ativan 0.5 Mg PO 01/26/18 17:25 0.5 mg BID PRN PRN Administration ANXIETY Methylprednisolone Sodium Succinate 60 mg 12/28/17 00:00 01/01/18 11:44 Solu-Medrol 125 Mg IV 01/27/18 00:00 60 mg Q6HT EDGAR Administration Multivitamins Therapeutic 1 tab 12/28/17 10:00 01/01/18 10:20 Theragran Multivitamin PO 01/27/18 09:59 1 tab DAILY EDGAR Administration Pantoprazole Sodium 40 mg 12/28/17 10:00 01/01/18 10:20 Protonix 40mg Tablet PO 01/27/18 09:59 40 mg DAILY EDGAR Administration Fluticasone/Salmeterol 2 puff 12/27/17 19:00 01/01/18 07:17 Advair Hfa 230/21 Mcg Common Canister* IH 01/26/18 18:59 2 puff BIDRT [place]GAR Administration Sodium Chloride 10 ml 12/27/17 22:00 01/01/18 06:01 Sodium Chloride 0.9% 10 Ml Flush Syringe IV 01/26/18 21:59 10 ml Q8HT [place]GAR Administration Sodium Chloride 10 ml 12/27/17 15:59 Sodium Chloride 0.9% 10 Ml Flush Syringe IV 01/26/18 15:58 PRN PRN Sodium Chloride 3 ml 12/27/17 20:47 12/30/17 23:17 Sodium Chloride 3 Ml Ud Nebules 01/26/18 20:46 3 ml Q4HPRN PRN Administration TO DILUTE XOPENEX Sodium Chloride 3 ml 12/28/17 07:00 01/01/18 10:26 Sodium Chloride 3 Ml Ud Nebules 01/27/18 06:59 3 ml QIDRT ED[place]AR Administration Tiotropium [place] 1 ea 12/28/17 10:00 01/01/18 07:17 Spiriva 18 Mcg/Cap Inhaler 01/27/18 09:59 1 ea DAILY EDGAR Administration Discontinued Medications Generic Name Dose Route Start Last Admin Trade Name Freq PRN Reason Stop Dose Admin Albuterol/Ipratropium Confirm 12/27/17 15:48 Duoneb 0.5-3 Mg/3 Ml Neb Administered 12/27/17 15:49 Dose 3 ml IH .STK-MED ONE Albuterol/Ipratropium 3 ml 12/27/17 19:00 12/27/17 19:39 Duoneb 0.5-3 Mg/3 Ml Neb 01/26/18 18:59 3 ml QIDRT [place] Administration Albuterol/Ipratropium 3 ml 12/27/17 16:20 12/27/17 16:00 Duoneb 0.5-3 Mg/3 Ml Neb 01/26/18 16:19 3 ml Q4HPRN PRN Administration SHORTNESS OF BREATH/WHEEZING Aminophylline 50 mg 12/29/17 13:30 Aminophylline 500 Mg/20 Ml IV 01/28/18 13:29 DIRECTIONS UNKNOWN EDGAR Diltiazem HCl 2.5 mg 12/27/17 17:26 12/27/17 17:47 Cardizem Iv 50 Mg/10 Ml IV 12/27/17 17:27 2.5 mg ONCE ONE Administration Furosemide 20 mg 12/27/17 16:15 12/27/17 16:13 Lasix 20 Mg/2 Ml IV 12/27/17 16:16 20 mg NOW ONE Administration Ipratropium [place] 0.5 mg 12/28/17 07:00 Atrovent 0.5mg Nebule 01/27/18 06:59 QIDRT [facility] Methylprednisolone Sodium Succinate 125 mg 12/27/17 16:00 12/27/17 16:13 Solu-Medrol 125 Mg IV 12/27/17 17:00 125 mg NOW EDGAR Administration Non-Formulary Medication 1 each 12/29/17 15:00 12/29/17 15:00 Pharmacy Dosing Request [facility] 12/29/17 15:01 1 each NOW ONE Administration Theophylline 400 mg 12/27/17 17:45 12/28/17 16:03 Theophylline Er 24hr PO 01/26/18 17:44 400 mg 1600 EDGAR Administration Tiotropium [place] Confirm 12/28/17 06:11 Spiriva 18 Mcg/Cap Inhaler Administered 12/28/17 06:12 Dose 1 ea IH .STK-MED ONE Intake & Output (Last 24 hours) 12/30/17 12/31/17 01/01/18 01/02/18 11:59 11:59 11:59 11:59 Intake Total 873 1161 1111 Output Total 1150 9392 750 Balance -277 -614 361 Laboratory Results (Last 24 hours) 01/01/18 05:47 Theophylline 7.8 L Orders (Last 24 hours) Category Date Time Status Discharge Planning,Consult Routine Discharge 01/01/18 Active Theophylline DAILY Lab 01/01/18 05:47 Completed Theophylline DAILY Lab 01/02/18 05:30 Ordered Acetaminophen 325 mg [Tylenol 325 mg] Med 12/31/17 20:27 Active 650 mg PO Q4H PRN PRN BiPap/CPAP ROUTINE RT 12/31/17 17:08 Active Respiratory Nebulizer 0700,1900 RT 01/01/18 07:00 Active - Vitals & Intake/Output Vital Signs: Vital Signs Temperature 97.4 F 01/01/18 11:57 Pulse Rate 111 H 01/01/18 11:57 Respiratory Rate 30 H 01/01/18 11:57 Blood Pressure 118/65 01/01/18 11:57 O2 Sat by Pulse Oximetry 94 L 01/01/18 11:57 Oxygen-Last Documented O2 Percentage 6 Liters = 44% Intake & Output: Intake & Output 12/30/17 12/31/17 01/01/18 01/02/18 11:59 11:59 11:59 11:59 Intake Total 873 1161 1111 Output Total 1150 1775 750 Balance -002 -088 361 - Lab Result Diagrams: 12/31/17 05:00 12/31/17 05:00 Lab Results-Last 24 Hrs: Lab Results-Last 24 Hours 01/01/18 Range/Units 05:47 Theophylline 7.8 L (10-20) ug/mL - Procedures and Test Procedures and Tests throughout Hospitalization: Therapy Orders & Screens 12/27/17 16:10 EKG ROUTINE Comment: Diagnosis: [place] copd 12/27/17 16:21 Oxygen OXYMIZER-LPM 10% Comment: Diagnosis: [place] copd 12/27/17 19:00 Respiratory MDI BID Comment: ADVAIR 230/21 BID Diagnosis: [place] copd 12/27/17 20:46 Respiratory Nebulizer PRN Comment: XOPENEX Q4HPRN FOR SOB/WHEEZING Diagnosis: [place] copd 12/28/17 07:00 Respiratory Nebulizer QID Comment: XOPENEX QID Diagnosis: [place] copd 12/28/17 10:00 Respiratory MDI UD Comment: SPIRIVA DAILY Diagnosis: [place] copd 12/31/17 17:08 BiPap/CPAP ROUTINE Comment: Diagnosis: EXACERBATION COPD, RESP DISTRESS WITH HYPOXIA 01/01/18 07:00 Respiratory Nebulizer 0700,1900 Comment: PULMICORT BID Diagnosis: EXACERBATION COPD, RESP DISTRESS WITH HYPOXIA Discharge Exam General Appearance: no apparent distress, alert Neurologic Exam: alert, oriented x 3, cooperative, normal mood/affect, nml cerebellar function, sensation nml, No motor deficits Skin Exam: normal color, warm, dry Eye Exam: PERRL, EOMI, eyes nml inspection Ears, Nose, Throat Exam: normal ENT inspection, pharynx normal, moist mucous membranes Neck Exam: normal inspection, non-tender, supple, full range of motion Respiratory Exam: accessory muscle use, prolonged expirations, crackles/rales, rhonchi, wheezing, No respiratory distress Cardiovascular Exam: regular rate/rhythm, normal heart sounds Gastrointestinal/Abdomen Exam: soft, No tenderness, No mass Extremity Exam: normal inspection, normal range of motion Back Exam: normal inspection, normal range of motion, No CVA tenderness, No vertebral tenderness Male Genitalia Exam: deferred Rectal Exam: deferred Final Diagnosis/Problem List - Final Discharge Diagnosis/Problem (1) Acute chronic obstructive pulmonary disease with respiratory failure Current Visit: Yes Status: Chronic Assessment & Plan: patient is severely hypoxic, on bipap. still hypoxic, patient does not want intubation and wants to go home with hospice, will make arrangement. (2) COPD exacerbation Current Visit: Yes Status: Chronic Onset Date: ~12/27/17 (3) SOB (shortness of breath) Current Visit: Yes Status: Acute Onset Date: ~12/27/17 (4) COPD (chronic obstructive pulmonary disease) with emphysema Current Visit: Yes Status: Acute (5) COPD, group D, by GOLD 2017 classification Current Visit: Yes Status: Acute (6) Cor pulmonale (chronic) Current Visit: Yes Status: Acute - Discharge Discharge Date: 01/01/18 Disposition: Hospice @ [facility] Condition: Stable Prescriptions: No Action Tiotropium [place] Inhaler [Spiriva 18 Mcg/Cap Inhaler] 2 puff IH DAILY Calcium Carbonate/Vitamin D3 [Calcium 600 + Vit D 200 Tablet] 1 each PO DAILY Ipratropium/Albuterol Sulfate [Combivent Inhaler] 1 puff IH QID Budesonide/Formoterol Fumarate [Symbicort 160-4.5 Mcg Inhaler] 2 puff IH BID Albuterol Common Canister [Proventil Common Canister] 1 puff IH Q4HPRN PRN PRN Reason: Shortness Of Breath Loratadine 10 mg [Claritin 10 mg] 10 mg PO 0900,1600 Theophylline Anhydrous [Theophylline] 400 mg PO 1600 Multivitamin [Multivitamins] 1 each PO DAILY Prednisone 5 mg [Deltasone 5 mg] 2 tab PO 0900,1600 Additional Instructions: CPAP at home, hospice to follow, High flow oxygen at home 10 L. Follow up with: JEREMI PLUNKETT MD [Primary Care Provider] - 1 Week
[2018-01-01 16:07] VITALS: BP 138/77; PULSE 68; O2SAT 98
== END 2018-01-01 16:30 | disposition hospice, home (50) | DRG 191 ==
LOC: MED SURG 15:42 → OBSVTOIN 19:39
PROVIDERS: ADMIT General Practice; ATTEND General Practice
DX: J44.1 Chronic obstructive pulmonary disease with (acute) exacerbation (principal); J96.11 Chronic respiratory failure with hypoxia; I27.81 Cor pulmonale (chronic)
CPT/HCPCS: 36415; 36600; 71045; 80048; 80053; 80198; 82375; 82803; 83880; 84100; 84484; 85025; 85027; 85379; 87631; 93005; 94002; 94003; 94150; 94640; 94760; J0280; J0696; J1650; J1940; J2930; A9270-GY